=== PATIENT | male | born 1985 | race Caucasian/White ===

== ENCOUNTER 2020-05-08 11:58 | Emergency (ER) | payer BC, SELFPAY ==
[2020-05-08 12:08] VITALS: BP 121/75; PULSE 78; RESP 14; TEMP 36.6; O2SAT 99
--- NOTE | 2020-05-08 12:30 | ED.EXTPRO ---
HPI - Extremity Problem General Chief complaint: Extremity Injury, Upper Stated complaint: right shoulder pain Source: patient Mode of arrival: ambulatory Limitations: no limitations History of Present Illness HPI Narrative: Patient was seen by provider at 1219. Patient presents today complaining of right shoulder injury. Yesterday he was standing on a stool cutting a branch. He leaned over too far, fell to the ground onto his right shoulder. It was not getting too bad, but then he rolled off a twin bed that he had been lying on with his son, also onto the right shoulder last night. He had to call into work today, and needs a note to excuse him. Denies numbness or tingling in the arm or hand. Currently rates pain 5/10. He has tried no interventions for pain prior to arrival. MD Complaint: extremity pain Related Data Home Medications Medication Instructions Recorded Confirmed No Home Medications 05/08/20 05/08/20 Allergies Allergy/AdvReac Type Severity Reaction Status Date / Time hydrocodone Allergy Unknown Itching Verified 05/08/20 12:29 oxycodone Allergy Unknown Itching Verified 05/08/20 12:29 Review of Systems Review of Systems: Narrative: CONSTITUTIONAL: Denies body aches, fever, chills, or sweats. EYES: Denies visual changes, redness, or discharge. ENT: Denies rhinorrhea, congestion, sore throat, or otalgia. CARDIOVASCULAR: Denies chest pain, palpitations, or edema. RESPIRATORY: Denies cough or dyspnea. GASTROINTESTINAL: Denies abdominal pain, nausea, vomiting, or diarrhea. GENITOURINARY: Denies dysuria or hematuria. SKIN: Denies rash, itching, or wounds. MUSCULOSKELETAL: Denies back pain, or myalgia. + Right shoulder injury NEUROLOGIC: Denies headache, numbness, tingling, or weakness. PSYCH: Denies depression or anxiety. PMFSH Comments At time of signature, I have reviewed and agree with nursing past medical, surgical, social and family history unless otherwise noted. Please see nursing chart for further information. There is no relevant family history pertinent to the presenting complaint Exam Narrative: Exam Narrative: GENERAL: Well-appearing, well-nourished, and in no acute distress. HEAD: Normocephalic, atraumatic. EYES: EOMI. No redness or drainage. ENT: Mucous membranes pink and moist. NECK: Normal AROM. CHEST: No respiratory distress. MUSCULOSKELETAL: No bony tenderness of the spine. EXTREMITIES: Right shoulder: Full range of motion with increased pain with external rotation. No crepitus noted with PROM. Strength normal. Distal sensation intact. Capillary refill normal. Radial pulse normal. Elbow and wrist normal. Color normal. No tenderness to the neck. Very mild tenderness to the mid trapezius without edema or discoloration. SKIN: Warm, dry, no rash. Capillary refill normal. Normal skin turgor. NEURO: No focal deficits. Alert and oriented x3. Gait steady. PSYCH: Normal affect. No signs of depression or anxiety. Course Vital Signs Vital signs: Vital Signs Temperature 97.8 F 05/08/20 12:08 Pulse Rate 78 05/08/20 12:08 Respiratory Rate 14 05/08/20 12:08 Blood Pressure 121/75 05/08/20 12:08 Pulse Oximetry 99 05/08/20 12:08 Temperature 97.8 F 05/08/20 12:08 Pulse Rate 78 05/08/20 12:08 Respiratory Rate 14 05/08/20 12:08 Blood Pressure 121/75 05/08/20 12:08 Pulse Oximetry 99 05/08/20 12:08 Reviewed. Pt has been instructed to follow up with his PCP regarding his elevated blood pressure today. MDM - Extremity (Nontraumatic) Differential Diagnosis Differential diagnosis: Likely other (Shoulder strain, rotator cuff tendinitis, rotator cuff tear, contusion, radiculopathy, trapezius strain) Critical Care Time Critical Care Time Critical Care Time: No Discharge Plan Discharge Clinical Impression: Injury of right shoulder Qualifiers: Encounter type: initial encounter Qualified Code(s): S49.91XA - Unspecified injury of right shoulder
== END 2020-05-08 12:08 | disposition home or self-care (01) ==
PROVIDERS: Emergency Provider Nurse Practitioner; PCP Nurse Practitioner Family
DX: S49.91XA Unspecified injury of right shoulder and upper arm, initial encounter (principal); W17.89XA Other fall from one level to another, initial encounter
CPT/HCPCS: 99212; G0463